=== PATIENT | male | born 1980 | race Caucasian/White ===

== ENCOUNTER 2020-12-22 05:10 | Emergency (ER) | payer OTHER ==
[~2020-12-22 05:10] MED LIST: CYCLOBENZAPRINE10 MG PO
[2020-12-22 06:18] LABS: HEMOGLOBIN 15.4 gm/dl (14.0-17.5); RED BLOOD COUNT 5.29 M/UL (4.20-5.50); WHITE BLOOD COUNT 7.3 K/UL (4.5-11.0)
[2020-12-22 06:56] LABS: BUN/CREATININE RATIO 16 (0-10)
[2020-12-22] MEDS ORDERED: ZOFRAN ODT 4 MG4 MG SL (11:21)
[2020-12-23] MEDS ORDERED: AUGMENTIN 875-1 EACH PO (23:43)
[2020-12-23] MEDS ORDERED: LODINE CAP 300300 MG PO (23:43)
[2020-12-23] MEDS ORDERED: ZOFRAN ODT 4 MG4 MG PO (23:43)
== END 2020-12-22 12:30 | disposition home or self-care (01) ==
LOC: ER1 05:10
PROVIDERS: Family Medicine
DX: K52.9 Noninfective gastroenteritis and colitis, unspecified (principal); F17.210 Nicotine dependence, cigarettes, uncomplicated
CPT/HCPCS: 36415; 71045; 76705; 80053; 82550; 82553; 83605; 83690; 83874; 84484; 85025; 87040; 93005; 96374; 96375; 99284; J1885; J2405; Q9967

== ENCOUNTER 2020-12-23 17:00 | Emergency (ER) | payer OTHER ==
[~2020-12-23 17:00] MED LIST changes: +ZOFRAN ODT 4 MG4 MG SL
[2020-12-23 20:19] LABS: HEMOGLOBIN 16.2 gm/dl (14.0-17.5); RED BLOOD COUNT 5.52 M/UL (4.20-5.50)
[2020-12-23 20:20] LABS: WHITE BLOOD COUNT 9.6 K/UL (4.5-11.0)
[2020-12-23 20:37] LABS: BUN/CREATININE RATIO 14 (0-10)
[2020-12-23] MEDS ORDERED: ZOFRAN ODT 4 MG4 MG PO (23:43)
[2020-12-23] MEDS ORDERED: AUGMENTIN 875-1 EACH PO (23:43)
[2020-12-23] MEDS ORDERED: LODINE CAP 300300 MG PO (23:43)
== END 2020-12-23 23:51 | disposition home or self-care (01) ==
LOC: ER1 17:00
PROVIDERS: Physician Assistant
DX: R07.89 Other chest pain (principal); R01.1 Cardiac murmur, unspecified; R10.10 Upper abdominal pain, unspecified; R10.13 Epigastric pain
CPT/HCPCS: 36415; 71045; 80053; 80307; 81001; 82550; 82553; 83605; 83690; 83874; 84484; 85025; 85379; 87040; 93005; 96374; 99285; G0480; J1885; Q9967